=== PATIENT | female | born 1965 | race Caucasian/White ===

== ENCOUNTER 2021-03-01 16:19 | Emergency (ER) | payer OTHER ==
[2021-03-01 17:53] LABS: HEMOGLOBIN 14.4 gm/dl (12.3-15.3); RED BLOOD COUNT 5.5 M/UL (4.00-5.10); WHITE BLOOD COUNT 9.4 K/UL (4.5-11.0)
== END 2021-03-01 20:19 | disposition home or self-care (01) ==
LOC: ER1 16:19
PROVIDERS: Emergency Medicine
DX: M54.50 Low back pain, unspecified (principal); I48.91 Unspecified atrial fibrillation; Z87.442 Personal history of urinary calculi
CPT/HCPCS: 80048; 81001; 85025; 96374; 96375; 99284; J1885; J2405